=== PATIENT | male | born 1990 | race American Indian/Alaskan Native ===

== ENCOUNTER 2017-12-05 12:46 | Emergency (ER) | payer MEDICAID, OTHER ==
[2017-12-05 12:51] VITALS: BMI 20.7
[2017-12-05 12:54] VITALS: BP 147/58; PULSE 62; RESP 18; TEMP 98.4; O2SAT 100
--- NOTE | 2017-12-05 13:49 | C.PDOC ---
History Of Present Illness 27 y/o male patient presents to the ER with complains of 8 years of pressure behind the eye and "brain fog, sometimes lightheaded. . Patient has been seen by his PMD for this, has recent bloodwork, which was normal. Patient was also evaluated by an manufacturing engineering technologist and is supposed to wear eyeglasses but is non- compliant. Otherwise, patient denies any headaches, vision changes, weakness, numbness, dizziness. Patient does not have any other new symptoms. pt uses visine. Time Seen by Provider: 12/05/17 13:14 Chief Complaint (Nursing): Eye Problem History Per: Patient History/Exam Limitations: no limitations Onset/Duration Of Symptoms: Persistent Current Symptoms Are (Timing): Still Present Quality: Pressure Wears Contact Lens?: No Associated Symptoms: denies: Decreased Vision, Swelling, FB Sensation, Itching, Discharge From Eye Additional History Per: Patient Past Medical History Reviewed: Historical Data, Nursing Documentation, Vital Signs Vital Signs: Last Vital Signs Temp 98.4 F 12/05/17 12:51 Pulse 62 12/05/17 12:51 Resp 18 12/05/17 12:51 BP 147/58 L 12/05/17 12:51 Pulse Ox 100 12/05/17 22:07 Surgical History: No Surg Hx Family History: States: No Known Family Hx - Social History Hx Alcohol Use: No Hx Substance Use: No - Immunization History Hx Tetanus Toxoid Vaccination: No Hx Influenza Vaccination: No Hx Pneumococcal Vaccination: No Review Of Systems Constitutional: Negative for: Fever, Chills Eyes: Positive for: Other (pressure). Negative for: Pain, Vision Change Neurological: Negative for: Weakness, Numbness, Headache, Dizziness Physical Exam - Physical Exam Appears: Non-toxic, No Acute Distress Skin: Normal Color, Warm, Dry Head: Atraumatic, Normacephalic Eye(s): bilateral: Normal Inspection, PERRL, EOMI Neck: Normal ROM, Supple Chest: Symmetrical Cardiovascular: Rhythm Regular Respiratory: Normal Breath Sounds, No Wheezing Neurological/Psych: Oriented x3, Normal Speech, Normal Cognition, Normal Cranial Nerves, Normal Motor, Normal Sensation ED Course And Treatment O2 Sat by Pulse Oximetry: 100 (RA) Pulse Ox Interpretation: Normal Medical Decision Making Medical Decision Making: Impression: Eye discomfort Plan: Visual acuity test could not be obtained as patient was not wearing his glasses. Patient instructed on strict follow up with PMD and given referral for opthalmologist and neurologist follow up as well. Disposition - Disposition Referrals: Shaik Randle MD [Staff Provider] - Ino Brar [Staff Provider] - Enmanuel Hernandez MD [Staff Provider] - Disposition: HOME/ ROUTINE Disposition Time: 13:47 Condition: GOOD Additional Instructions: Please call pharmacogeneticist service to help you find a neurologist and post acute care registered nurse for further evaluation. Follow up with Dr Her as well. Forms: [email or web address] (Dominican), General Discharge Instructions - Clinical Impression Clinical Impression: Encounter for medical assessment - PA / CONFERENCE PLANNER / Resident Statement / has reviewed & agrees with the documentation as recorded. - Scribe Statement The provider has reviewed the documentation as recorded by the Ryan Arboleda Do All medical record entries made by the Scribe were at my direction and personally dictated by me. I have reviewed the chart and agree that the record accurately reflects my personal performance of the history, physical exam, medical decision making, and the department course for this patient. I have also personally directed, reviewed, and agree with the discharge instructions and disposition.
== END 2017-12-05 14:04 | disposition home or self-care (01) ==
LOC: C.ER 12:46
DX: Z04.8 Encounter for examination and observation for other specified reasons (principal)